=== PATIENT | male | born 1955 | race Two or more races ===

== ENCOUNTER 2021-09-03 21:44 | Inpatient (IN) | payer MEDICARE, OTHER ==
[~2021-09-03] VITALS: Ht 170.2 cm; Wt 67.3 kg
[2021-09-03] MEDS ORDERED: ACCU-CHEK COMFORT CURVE STRIP VI ONE (22:30)
[2021-09-03 22:51] LABS: Basophils # (auto) 0.2 10 ^3/uL (0-0.2); Basophils % (auto) 3.1 % (0.0-2.0); Eosinophils # (auto) 0.3 10 ^3/uL (0-0.8); Eosinophils % (auto) 3.6 % (0.0-7.0); Hematocrit 40.5 % (41.0-53.0); Hemoglobin 13.3 g/dL (13.5-17.5); Lymphocytes # (auto) 1.1 10 ^3/uL (0.4-5.4); Lymphocytes % (auto) 14.3 % (10.0-50.0); Mean Corpuscular Hemoglobin 29.8 pg (28.0-32.0); Mean Corpuscular Hgb Conc. 32.8 g/dL (32.0-36.0); Monocytes # (auto) 0.7 10 ^3/uL (0-1.3); Monocytes % (auto) 9.9 % (0.0-12.0); Neutrophils # (auto) 5.1 10 ^3/uL (1.6-8.6); Neutrophils % (auto) 69.1 % (37.0-80.0); Nucleated Red Blood Cells % 0.3 %; Red Blood Cells 4.45 10^6/uL (4.5-5.90); Red Cell Distribution Width 14.6 % (11.8-14.3); White Blood Cell 7.4 10^3/uL (4.4-10.8)
[2021-09-03 23:11] LABS: Potassium 5.2 mmol/L (3.5-5.1)
[2021-09-03 23:19] LABS: Albumin 3.6 g/dL (3.4-5.0); BUN/Creatinine Ratio 21.3; Bilirubin, Total 0.2 mg/dL (0.2-1.0); Calcium 8.5 mg/dL (8.5-10.1); Magnesium 3.1 mg/dL (1.6-2.6); Total Protein 6.7 g/dL (6.4-8.2)
[2021-09-04 01:47] LABS: Urine Bacteria NONE SEEN /hpf (None Seen); Urine Blood Negative /uL (Negative); Urine Specific Gravity 1.004 (1.001-1.035); Urine WBC 1 /hpf (0 - 3)
[2021-09-04] MEDS ORDERED: levETIRAcetam 500 MG TAB PO ONE (02:00)
[2021-09-04] MEDS ORDERED: ONDANSETRON HCL 4 MG/2 ML VIAL IV PRN (06:45)
[2021-09-04] MEDS ORDERED: TEMAZEPAM 15 MG CAP PO PRN (06:45)
[2021-09-04] MEDS ORDERED: ACETAMINOPHEN 325 MG TAB PO PRN (06:45)
[2021-09-04] MEDS ORDERED: SODIUM ZIRCONIUM CYCL 10 GM PAK PO ONE (07:00)
[2021-09-04] MEDS ORDERED: LORazepam 2MG/ML-1ML VIAL IV PRN (09:00)
[2021-09-04] MEDS: CARVEDILOL 3.125 MG TAB PO SCH ×2 (09:24→23:52)
[2021-09-04] MEDS: AMIODARONE HCL 200 MG TAB PO SCH ×2 (09:24→23:53)
[2021-09-04] MEDS: MAGNESIUM OXIDE 400 MG TAB PO SCH ×2 (09:43→23:45)
[2021-09-04] MEDS: OXcarbazepine 300 MG TAB PO SCH ×2 (09:43→23:45)
[2021-09-04] MEDS: levETIRAcetam 500 MG TAB PO SCH ×2 (09:43→23:46)
[2021-09-04] MEDS: CLOPIDOGREL BISULFATE 75 MG TAB PO SCH (09:43)
[2021-09-04 18:04] VITALS: BP 120/77
[2021-09-04] MEDS ORDERED: ATORVASTATIN 20 MG TAB PO SCH (22:00)
[2021-09-04 23:43] VITALS: BP 99/64
[2021-09-05 05:36] VITALS: BP 96/55
[2021-09-05 09:00] VITALS: BP 106/53
[2021-09-05] MEDS: CLOPIDOGREL BISULFATE 75 MG TAB PO SCH (10:03)
[2021-09-05] MEDS: levETIRAcetam 500 MG TAB PO SCH (10:04)
[2021-09-05] MEDS: OXcarbazepine 300 MG TAB PO SCH (10:04)
[2021-09-05] MEDS: AMIODARONE HCL 200 MG TAB PO SCH (10:04)
[2021-09-05] MEDS: MAGNESIUM OXIDE 400 MG TAB PO SCH (10:04)
[2021-09-05] MEDS: CARVEDILOL 3.125 MG TAB PO SCH (10:05)
[2021-09-05 10:32] LABS: Basophils # (auto) 0.1 10 ^3/uL (0-0.2); Basophils % (auto) 1.2 % (0.0-2.0); Eosinophils # (auto) 0.2 10 ^3/uL (0-0.8); Eosinophils % (auto) 2.9 % (0.0-7.0); Hematocrit 42.6 % (41.0-53.0); Hemoglobin 13.7 g/dL (13.5-17.5); Lymphocytes # (auto) 1.2 10 ^3/uL (0.4-5.4); Lymphocytes % (auto) 17.8 % (10.0-50.0); Mean Corpuscular Hemoglobin 29.3 pg (28.0-32.0); Mean Corpuscular Hgb Conc. 32.1 g/dL (32.0-36.0); Mean Corpuscular Volume 91.3 fL (80.0-100.0); Monocytes # (auto) 0.8 10 ^3/uL (0-1.3); Monocytes % (auto) 11.4 % (0.0-12.0); Neutrophils # (auto) 4.4 10 ^3/uL (1.6-8.6); Neutrophils % (auto) 66.7 % (37.0-80.0); Red Blood Cells 4.66 10^6/uL (4.5-5.90); Red Cell Distribution Width 14.5 % (11.8-14.3); White Blood Cell 6.6 10^3/uL (4.4-10.8)
[2021-09-05 10:55] LABS: Calcium 9.2 mg/dL (8.5-10.1)
[2021-09-05 10:58] LABS: BUN/Creatinine Ratio 22.1
== END 2021-09-05 18:24 | disposition home or self-care (01) | DRG 101 ==
LOC: EDBD 21:44 → ER 21:48 → EDBD 21:48 → WEST WING 09-04 06:52
PROVIDERS: ADMIT Nurse Practitioner; ATTEND Internal Medicine
DX: G40.909 Epilepsy, unspecified, not intractable, without status epilepticus (principal); E87.1 Hypo-osmolality and hyponatremia; E87.5 Hyperkalemia; I25.10 Atherosclerotic heart disease of native coronary artery without angina pectoris; Z20.822 Contact with and (suspected) exposure to COVID-19; I10 Essential (primary) hypertension; Z79.899 Other long term (current) drug therapy; Z86.73 Personal history of transient ischemic attack (TIA), and cerebral infarction without residual deficits; Z95.1 Presence of aortocoronary bypass graft
CPT/HCPCS: 36415; 70450; 80048; 80053; 81001; 82962; 83735; 83880; 84484; 85025; 87426; 95819; G0378

== ENCOUNTER 2024-04-03 21:10 | Emergency (ER) | payer MEDICARE, OTHER ==
[2024-04-03] MEDS: SODIUM CHLORIDE 0.9% 1,000 ML IV ONE (23:45)
[2024-04-04 00:16] LABS: Basophils # (auto) 0 10 ^3/uL (0-0.2); Basophils % (auto) 0.5 % (0.0-2.0); Eosinophils # (auto) 0.1 10 ^3/uL (0-0.8); Eosinophils % (auto) 0.8 % (0.0-7.0); Hematocrit 39.3 % (41.0-53.0); Hemoglobin 13.6 g/dL (13.5-17.5); Lymphocytes % (auto) 12.6 % (10.0-50.0); Mean Corpuscular Hemoglobin 30.8 pg (28.0-32.0); Mean Corpuscular Hgb Conc. 34.7 g/dL (32.0-36.0); Mean Corpuscular Volume 88.8 fL (80.0-100.0); Monocytes # (auto) 0.7 10 ^3/uL (0-1.3); Monocytes % (auto) 8.1 % (0.0-12.0); Neutrophils # (auto) 6.4 10 ^3/uL (1.6-8.6); Red Blood Cells 4.43 10^6/uL (4.5-5.90); Red Cell Distribution Width 13.2 % (11.8-14.3); White Blood Cell 8.3 10^3/uL (4.4-10.8)
[2024-04-04 00:32] LABS: INR 1.06 (0.9-1.15); Partial Thromboplastin Time 28.6 SEC (24.5-34.5); Prothrombin Time 11.2 sec (9.3-11.8)
[2024-04-04 00:37] LABS: Alanine Aminotransferase 16 U/L (7-40); Albumin 3.7 g/dL (3.2-4.8); Alkaline Phosphatase 94 U/L (46-116); Anion Gap 2 (5-15); Aspartate Aminotransferase 14 U/L (13-40); BUN/Creatinine Ratio 12.5 (10.0-20.0); Bilirubin, Total 0.3 mg/dL (0.2-1.0); Blood Urea Nitrogen 10 mg/dL (9-23); Carbon Dioxide 25 mmol/L (20-30); Chloride 101 mmol/L (98-107); Glucose 114 mg/dL (74-106); Potassium 4.1 mmol/L (3.5-5.1); Sodium 128 mmol/L (136-145); Total Protein 5.9 g/dL (5.7-8.2)
[2024-04-04 01:37] LABS: Blood Alcohol < 3.0 mg/dL (<10)
[2024-04-04] MEDS: PHENYTOIN IV DILANTIN 1,000 MG in SODIUM CHL 0.9% 250 ML IV ONE (04:30)
[2024-04-04 05:30] VITALS: BP 147/90; PULSE 66; RESP 14; TEMP 97.3; O2SAT 96
== END 2024-04-04 06:05 | disposition home or self-care (01) ==
LOC: ER 21:10 → EDBD 21:10 → ER 04-04 06:05
DX: G40.909 Epilepsy, unspecified, not intractable, without status epilepticus (principal); R55 Syncope and collapse; I10 Essential (primary) hypertension; F12.90 Cannabis use, unspecified, uncomplicated; Z91.199 Patient's noncompliance with other medical treatment and regimen due to unspecified reason
CPT/HCPCS: 36415; 70450; 71045; 80053; 80185; 80320; 84484; 85025; 85610; 85730; 93005; 99291; J1165; J7050

== ENCOUNTER 2025-05-17 11:50 | Outpatient (CLI) | payer OTHER ==
[2025-05-17 12:33] LABS: Hematocrit 43.4 % (41.0-53.0); Hemoglobin 14.8 g/dL (13.5-17.5); Mean Corpuscular Hemoglobin 30.2 pg (28.0-32.0); Mean Corpuscular Volume 88.7 fL (80.0-100.0); Nucleated Red Blood Cells % 0.0 %
[2025-05-17 12:57] LABS: Alanine Aminotransferase 18 U/L (7-40); Albumin 4.7 g/dL (3.2-4.8); Alkaline Phosphatase 112 U/L (46-116); Anion Gap 7 (5-15); BUN/Creatinine Ratio 10.1 (10.0-20.0); Bilirubin, Total 0.5 mg/dL (0.2-1.0); Calcium 9.7 mg/dL (8.7-10.4); Carbon Dioxide 31 mmol/L (20-31); Chloride 101 mmol/L (98-107); Cholesterol 149 mg/dL (< 200); Glucose 86 mg/dL (74-106); HDL Cholesterol 55 mg/dL (40-59); Potassium 4.7 mmol/L (3.5-5.1); Sodium 139 mmol/L (136-145); Total Protein 7.4 g/dL (5.7-8.2); Triglycerides 95 mg/dL (< 150)
[2025-05-17 12:59] LABS: Blood Urea Nitrogen 9 mg/dL (9-23)
[2025-05-18 08:07] LABS: Free Thyroxine Index 1.0 (1.2-4.9)
== END 2025-05-17 17:00 | disposition home or self-care (01) ==
LOC: LAB 11:50
PROVIDERS: ATTEND Specialist
DX: I10 Essential (primary) hypertension (principal); E03.9 Hypothyroidism, unspecified; E78.5 Hyperlipidemia, unspecified; H91.8X2 Other specified hearing loss, left ear; I25.2 Old myocardial infarction
CPT/HCPCS: 36415; 80053; 80061; 84443; 85025